=== PATIENT | male | born 1935 | race Caucasian/White ===

== ENCOUNTER 2023-08-09 12:09 | Day surgery (SDC) | payer OTHER ==
[~2023-08-09] VITALS: Ht 154.9 cm; Wt 62.6 kg
[2023-08-09] MEDS ORDERED: LIDOCAINE 2% 100 MG/5 ML UJET TP ONE ×2 (14:59→16:20)
[2023-08-09] MEDS ORDERED: fentaNYL citrate 0.05 MG/ML VIAL ONE (14:59)
[2023-08-09] MEDS ORDERED: fentaNYL citrate 0.05 MG/ML VIAL IVP ONE (16:20)
== END 2023-08-09 16:37 | disposition home or self-care (01) ==
LOC: MDS 12:09 → MMU 12:10 → MDS 16:37
PROVIDERS: ATTEND Internal Medicine Gastroenterology
DX: Z12.11 Encounter for screening for malignant neoplasm of colon (principal); K57.30 Diverticulosis of large intestine without perforation or abscess without bleeding; I10 Essential (primary) hypertension; E78.5 Hyperlipidemia, unspecified; Z79.899 Other long term (current) drug therapy
CPT/HCPCS: 45378; 82948; J3010